=== PATIENT | male | born 1960 ===

== ENCOUNTER 2018-04-13 02:07 | Emergency (ER) | payer MEDICAID ==
[2018-04-13 02:18] VITALS: TEMP 97.8; BMI 32.5
[2018-04-13] MEDS ORDERED: TDAP Vaccine 0.5 mL Syr IM ONE (02:24)
--- NOTE | 2018-04-13 02:43 | ED PDOC ---
Arrival/HPI - General Chief Complaint: Finger,Hand,&Wrist Time Seen by Provider: 04/13/18 02:23 Historian: Patient - History of Present Illness Narrative History of Present Illness (Text): 04/13/18 02:25 57 y/o male, pmh including hld and hypothyroidism, last tetanus over 10 years ago, c/o lt. hand thumb nail puncture wound x 12 hours. Pt. stated that he was trying to remove the nail from the wood with bared hand, accidentally poke the lt. hand thumb region, was bleeding but resolved, no difficulty bending or extending the thumb, no numbness or tingling, no other medical or psychological complaints. Past Medical History - Provider Review Nursing Documentation Reviewed: Yes - Infectious Disease Hx of Infectious Diseases: None - Cardiac Hx Cardiac Disorders: No - Pulmonary Hx Respiratory Disorders: No - Neurological Hx Neurological Disorder: No - HEENT Hx HEENT Disorder: No - Renal Hx Renal Disorder: No - Endocrine/Metabolic Hx Endocrine Disorders: Yes Hx Hypothyroidism: Yes Other/Comment: Hx Thyroid Cancer - Hematological/Oncological Hx Blood Disorders: No - Integumentary Hx Dermatological Disorder: No - Musculoskeletal/Rheumatological Hx Musculoskeletal Disorders: No - Gastrointestinal Hx Gastrointestinal Disorders: No - Genitourinary/Gynecological Hx Genitourinary Disorders: No - Psychiatric Hx Psychophysiologic Disorder: No Hx Substance Use: No - Surgical History Hx Thyroidectomy: Yes Family/Social History - Physician Review Nursing Documentation Reviewed: Yes Family/Social History: Unknown Family HX Smoking Status: Never Smoked Hx Alcohol Use: Yes Frequency of alcohol use: Socially Hx Substance Use: No Allergies/Home Meds Allergies/Adverse Reactions: Allergies No Known Allergies Allergy (Verified 04/13/18 02:23) Home Medications: Home Meds Medication Instructions Recorded Confirmed Levothyroxine [Synthroid] 200 mcg PO DAILY 04/13/18 04/13/18 Review of Systems - Review of Systems Constitutional: absent: Fatigue, Fevers Eyes: absent: Vision Changes ENT: absent: Hearing Changes Respiratory: absent: SOB, Cough Cardiovascular: absent: Chest Pain Gastrointestinal: absent: Abdominal Pain, Nausea, Vomiting Skin: Other (+puncture wound). absent: Rash, Pruritis Neurological: absent: Headache, Dizziness Hemo/Lymphatic: absent: Adenopathy Psychiatric: absent: Anxiety, Depression, Suicidal Ideation Physical Exam Vital Signs Reviewed: Yes Vital Signs Temp Pulse Resp BP Pulse Ox 04/13/18 03:00 65 18 128/72 100 04/13/18 02:18 97.8 F 62 17 131/83 98 04/13/18 02:17 97.8 F 62 17 131/83 98 Temperature: Afebrile Blood Pressure: Normal Pulse: Regular Respiratory Rate: Normal Appearance: Positive for: Well-Appearing, Non-Toxic, Comfortable Pain Distress: Mild Mental Status: Positive for: Alert and Oriented X 3 - Systems Exam Head: Present: Atraumatic, Normocephalic Pupils: Present: PERRL Extroacular Muscles: Present: EOMI Conjunctiva: Present: Normal Mouth: Present: Moist Mucous Membranes Neck: Present: Normal Range of Motion Respiratory/Chest: Present: Clear to Auscultation, Good Air Exchange. No: Respiratory Distress, Accessory Muscle Use Cardiovascular: Present: Regular Rate and Rhythm, Normal S1, S2. No: Murmurs Abdomen: No: Tenderness, Distention, Peritoneal Signs Back: Present: Normal Inspection Upper Extremity: Present: Normal Inspection, Other (Lt. hand 1st digit thumb mid thenar region visible less than 0.1cm diameter puncture wound with mild bruising, no visible foreign bodies, negative kanavel signs, no cellulitis or ulcer, FROM without limitation, sensation intact, motor 5/5. ). No: Cyanosis, Edema Lower Extremity: Present: Normal Inspection. No: Edema Neurological: Present: GCS=15, CN II-XII Intact, Speech Normal Skin: Present: Warm, Dry, Normal Color. No: Rashes Psychiatric: Present: Alert, Oriented x 3, Normal Insight, Normal Concentration Medical Decision Making ED Course and Treatment: 04/13/18 02:45 -Xray lt. hand thumb wet read show no irregularity deformity noted distally with no obvious dislocation but degenerative changes noted -Keflex/motrin/tdap -wound irrigate with normal saline, clean with betadine, bacitracin and gauze dressing, finger splint. Discussed with the patient about this xray reading is wet read and would call him later today when official result is out. -Discharge home with keflex, motrin, finger splint, clean the thumb twice daily , follow up with your own pmd and hand specialist within 2 days, return to the ER for any new or worsening signs or symptoms. - RAD Interpretation Radiology Orders: 04/13/18 02:24 HAND LEFT THUMB [RAD] Stat HISTORY: lt. thumb nail injury COMPARISON: None available. TECHNIQUE: AP radiograph of the left hand, as well as spot oblique and lateral images of thumb were obtained. FINDINGS: LEFT THUMB: Punctate density within the distal soft tissues of the 1st digit may reflect debris versus tiny chip fracture fragment. Remainder of the left hand (as seen on the AP view) grossly unremarkable. JOINTS: Joint space narrowing of the DIP. SOFT TISSUES: Soft tissue swelling. OTHER FINDINGS: None. IMPRESSION: Soft tissue swelling. Punctate density within the distal soft tissues of the 1st digit may reflect debris versus tiny chip fracture fragment. Correlate physical exam. 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 - Medication Orders Current Medication Orders: Discontinued Medications Cephalexin Monohydrate (Keflex) 500 mg PO STAT STA PRN Reason: Protocol Stop: 04/13/18 02:25 Last Admin: 04/13/18 02:44 Dose: 500 mg Ibuprofen (Motrin Tab) 600 mg PO STAT STA Stop: 04/13/18 02:25 Last Admin: 04/13/18 02:44 Dose: 600 mg MAR Pain/Vitals Document 04/13/18 02:44 AD (Rec: 04/13/18 02:44 AD [id number]) Presence of Pain Presence of Pain Yes Pain Scale Used Pain Scale Used Numeric Location Left, Right or Bilateral Left Pain Location Body Site Thumb Intensity 7 Scale Used Numeric Pain Behavior Facial Grimacing Tetanus/Reduced Diphtheria/Acell Pertussis (Boostrix Vaccine Inj) 0.5 ml IM .ONCE ONE Stop: 04/13/18 02:25 Last Admin: 04/13/18 02:44 Dose: 0.5 ml - PA / CLOTHES WRINGER / Resident Statement MD/DO has reviewed & agrees with the documentation as recorded. Disposition/Present on Arrival - Present on Arrival Any Indicators Present on Arrival: No History of DVT/PE: No History of Uncontrolled Diabetes: No Urinary Catheter: No History of Decub. Ulcer: No History Surgical Site Infection Following: None - Disposition Have Diagnosis and Disposition been Completed?: Yes Diagnosis: Puncture wound of finger, Abnormal x-ray Disposition: HOME/ ROUTINE Disposition Time: :46 Patient Plan: Discharge Condition: GOOD Additional Instructions: -Discharge home with keflex, motrin, finger splint, clean the thumb twice daily , follow up with your own pmd and hand specialist within 2 days, return to the ER for any new or worsening signs or symptoms. Prescriptions: Cephalexin [cephalexin] 500 mg PO QID #40 cap Ibuprofen [Motrin Tab] 600 mg PO QID PRN #30 tab PRN Reason: Other Referrals: Dee Daily MD [Staff Provider] - Follow up with primary Forms: [place] [employer] ([place]), WORK NOTE
[2018-04-13 04:11] VITALS: BP 128/72; PULSE 65; RESP 18; O2SAT 100
--- NOTE | 2018-04-13 10:11 | RAD ---
Date of service: 04/13/2018 PROCEDURE: Left Thumb radiographs. HISTORY: lt. thumb nail injury COMPARISON: None available. TECHNIQUE: AP radiograph of the left hand, as well as spot oblique and lateral images of thumb were obtained. FINDINGS: LEFT THUMB: Punctate density within the distal soft tissues of the 1st digit may reflect debris versus tiny chip fracture fragment. Remainder of the left hand (as seen on the AP view) grossly unremarkable. JOINTS: Joint space narrowing of the DIP. SOFT TISSUES: Soft tissue swelling. OTHER FINDINGS: None. IMPRESSION: Soft tissue swelling. Punctate density within the distal soft tissues of the 1st digit may reflect debris versus tiny chip fracture fragment. Correlate physical exam. Study marked for PA review.
== END 2018-04-13 03:00 | disposition home or self-care (01) ==
LOC: ED 02:07
DX: S61.032A Puncture wound without foreign body of left thumb without damage to nail, initial encounter (principal); W45.0XXA Nail entering through skin, initial encounter; E78.5 Hyperlipidemia, unspecified; E03.9 Hypothyroidism, unspecified